=== PATIENT | male | born 1980 | race Caucasian/White ===

== ENCOUNTER 2020-05-06 17:49 | Outpatient (CLI) | payer OTHER, SELFPAY ==
--- NOTE | 2020-05-06 18:03 | XRR_ITS ---
PROCEDURE INFORMATION: Exam: XR Lumbosacral Spine, 2 or 3 Views Exam date and time: 05/06/2020 6:16 PM Age: 39 years old Clinical indication: Low back pain; Prior surgery; Surgery date: 6+ months; Additional info: Severe low back pain, right leg numbness TECHNIQUE: Imaging protocol: XR of the lumbosacral spine, 2 or 3 views. COMPARISON: No relevant prior studies available. FINDINGS: Vertebrae: Normal. No acute fracture. Normal alignment. Soft tissues: Unremarkable. XR/XR lumbar spine 2-3V* [id number] IMPRESSION: No acute findings.
== END 2020-05-06 17:50 | disposition home or self-care (01) ==
LOC: RAD 17:52
PROVIDERS: Visit Provider Nurse Practitioner Family
DX: M54.5 Low back pain (principal); R20.0 Anesthesia of skin; R29.898 Other symptoms and signs involving the musculoskeletal system; Z98.890 Other specified postprocedural states
CPT/HCPCS: 72100

== ENCOUNTER 2020-05-16 06:53 | Outpatient (CLI) | payer OTHER, SELFPAY ==
--- NOTE | 2020-05-16 07:15 | MR_ITS ---
WS: [id number] MRI LUMBAR SPINE NONCONTRAST HISTORY: M54.5 Low back pain COMPARISON: None available. TECHNIQUE: Sagittal and axial multisequence imaging is submitted. Normal lumbar alignment with no compression fractures or marrow edema. Mild disc desiccation and narrowing at L4-5 and L5-S1 and T11-12. Conus terminates normally at L1. Focal disc osteophyte posterior protrusion at T11-12 with mild contact on the ventral thecal sac and cord. No edema in the conus. L1-L2: Normal. L2-L3: Normal. L3-L4: Mild facet hypertrophy without stenosis. L4-L5: Very mild osteophytic ridging and annular disc bulging. There is a central disc protrusion wit h 6 extends into the RIGHT subarticular recess. Moderate-sized disc osteophyte complex with contact o n the RIGHT L5 nerve root within the annular fissure. L5-S1: Diffuse annular disc bulging and mild osteophytic ridging. There is a large central disc protr usion which extends bilaterally into the lateral recesses. There is significant contact on the RIGHT thecal sac and nerve root. There is an additional soft tissue component in the RIGHT lateral recess w hich I suspect may be an extruded disc or fragment. There is moderate thickening of the RIGHT S1 nerv e root. There is significant mass effect upon the nerve roots in the thecal sac and deformity of the thecal sac. The central portion of the disc herniation is contacting the S1 nerve roots bilaterally w ith encroachment into the subarticular recesses. Mild RIGHT foraminal narrowing. MR/MR lumbar spine wo con* [id number] IMPRESSION: 1. Large central disc protrusion at L5-S1 with extension into the lateral rece sses and contacting S1 nerve roots bilaterally. There is an additional soft tis bradley component which may be a disc fragment extending into the RIGHT lateral rec ess contacting and displacing the thecal sac and the nerve roots. This additio nal fragment measures 8.5 mm. 2. Central to RIGHT lateral recess disc protrusion at L4-5 extending into the RIGHT lateral recess. Contact on the RIGHT L5 nerve root. 3. Additional central disc osteophyte complex at T11-12 mild contact on the ve ntral thecal sac and thoracic cord.
== END 2020-05-16 06:54 | disposition home or self-care (01) ==
LOC: RADSHAW 06:55
PROVIDERS: PCP Nurse Practitioner Family; Visit Provider Nurse Practitioner Family
DX: M51.27 Other intervertebral disc displacement, lumbosacral region (principal); M51.26 Other intervertebral disc displacement, lumbar region; M25.78 Osteophyte, vertebrae
CPT/HCPCS: 72148

== ENCOUNTER 2020-09-07 06:00 | Outpatient (RCR) | payer OTHER, SELFPAY | END 2020-09-18 23:59 | disposition home or self-care (01) | LOC: APT 06:00 | PROVIDERS: PCP Nurse Practitioner Family; Referring Provider Physician Assistant; Visit Provider Physician Assistant | DX: R29.898 Other symptoms and signs involving the musculoskeletal system (principal); R20.0 Anesthesia of skin; R20.2 Paresthesia of skin; M54.5 Low back pain; M79.606 Pain in leg, unspecified | CPT/HCPCS: 97110; 97161 ==

== ENCOUNTER 2020-09-19 06:00 | Outpatient (RCR) | payer OTHER, SELFPAY | END 2020-10-16 23:59 | disposition home or self-care (01) | LOC: APT 06:00 | PROVIDERS: PCP Nurse Practitioner Family; Referring Provider Physician Assistant; Visit Provider Physician Assistant | DX: R29.898 Other symptoms and signs involving the musculoskeletal system (principal); M54.5 Low back pain | CPT/HCPCS: 97110; 97112; 97140 ==

== ENCOUNTER 2020-10-10 12:57 | Outpatient (CLI) | payer OTHER, SELFPAY ==
--- NOTE | 2020-10-10 13:01 | MR_ITS ---
WS: [id number] MRI THORACIC SPINE noncontrast. HISTORY: WEAKNESS OF RIGHT LOWER EXTREMITY COMPARISON: None available. TECHNIQUE: Multiplanar sequences are performed in sagittal and axial planes. Very slight increase in the thoracic kyphosis. Signal within the cord is normal. No fractures. Small cyst Schmorl's nodes are noted most significant at T8. No fracture or marrow edema. No myelomalacia. T1-2: Normal. T2-3: Normal. T3-4: Normal. T4-5: Normal. T5-6: Normal. T6-7: Small central disc protrusion with slight contact on the ventral thecal sac and displacement. No significant stenosis. T7-8: Normal. T8-9: Normal. T9-10: Normal. T10-11: Mild bilateral facet arthritis. No stenosis. T11-12: Moderate size central disc protrusion. Small osteophytes are contributing to mild encroachme nt upon the ventral thecal sac and the thoracic cord. There is contact but no displacement upon the t horacic cord. MR/MR thoracic spin wo con* [id number] IMPRESSION: 1. Mild increase in thoracic kyphosis and spondylosis. 2. Central disc protrusions at T6-7 and T11-12. Disc protrusions are contactin g the anterior thoracic cord with no displacement. No myelomalacia. Similar to the prior study.
--- NOTE | 2020-10-10 13:02 | MR_ITS ---
WS: [id number] MRI LUMBAR SPINE WITH AND WITHOUT CONTRAST HISTORY: WEAKNESS OF RIGHT LOWER EXTREMITY lumbar spine surgery 06/22/2020. COMPARISON: 05/16/2020 TECHNIQUE: Sagittal and axial multisequence imaging is submitted. Sagittal and axial T1 fat sat seque nces post-MultiHance 20 cc IV. Normal lumbar alignment. Disc space narrowing and degeneration at L4-5 and L5-S1. No acute marrow nehemiah ma or fractures. Postsurgical changes are noted at L5-S1. Conus terminates normally at L1-2 disc level. Central disc protrusion contacting the ventral cord at T11-12 is again identified. L1-L2: Normal. L2-L3: Normal. L3-L4: Mild bilateral facet joint arthritis. No significant stenosis. L4-L5: Diffuse annular disc bulging. Again noted is the central disc protrusion extending into the RI GHT lateral recess and abutting the L5 nerve root on the RIGHT. This was described on the prior study and may be slightly larger in size. Mild bilateral foraminal narrowing. L5-S1: Diffuse broad-based disc bulging posteriorly deforming the ventral thecal sac. Persistent cent ral disc protrusion. There is mild encroachment upon the ventral thecal sac. Mild bilateral foraminal narrowing. Peripherally enhancing fluid collection posterior to the central canal at L5-S1. Fluid collection ext ends centrally and to the RIGHT measures 2.7 x 1.3 cm. There is a additional diffuse soft tissue enha ncement along the postsurgical site and extending to surround the facet joints in the thecal sac. Sof t tissue enhancement surrounds the S1 nerve roots in the L5 nerve roots. MR/MR lumbar spine wo/w con [id number] IMPRESSION: 1. Peripherally enhancing fluid collection in the posterior paraspinal soft ti ssues at the surgical site measures 2.7 x 1.3 cm. Additional soft tissue enhanc ement surrounding the L5 and S1 nerve roots and through the facet joints of L5- S1. The collection may be postoperative hematoma or seroma or abscess. 2. Synovial enhancement and soft tissue enhancement surrounding the nerve root s can all be seen postsurgically. 3. Cannot exclude a small recurrent disc protrusion centrally and to the RIGHT abutting the S1 nerve root. 4. Central to RIGHT lateral disc protrusion at L4-5 is again identified abutti ng the L5 nerve root on the RIGHT.
[2020-10-10] MEDS: gadobenate dimeglumine 20 mL vial IV (14:21)
== END 2020-10-10 12:58 | disposition home or self-care (01) ==
LOC: RADWPI 13:00
PROVIDERS: PCP Nurse Practitioner Family; Visit Provider Physician Assistant
DX: R29.898 Other symptoms and signs involving the musculoskeletal system (principal); R20.0 Anesthesia of skin; R20.2 Paresthesia of skin; M51.26 Other intervertebral disc displacement, lumbar region; M51.24 Other intervertebral disc displacement, thoracic region; M40.294 Other kyphosis, thoracic region; M47.814 Spondylosis without myelopathy or radiculopathy, thoracic region
CPT/HCPCS: 72146; 72158; A9577

== ENCOUNTER 2020-10-17 06:00 | Outpatient (RCR) | payer OTHER, SELFPAY | END 2020-11-16 23:59 | disposition home or self-care (01) | LOC: APT 06:00 | PROVIDERS: PCP Nurse Practitioner Family; Referring Provider Physician Assistant; Visit Provider Physician Assistant | DX: R29.898 Other symptoms and signs involving the musculoskeletal system (principal); R20.0 Anesthesia of skin; R20.2 Paresthesia of skin; M54.5 Low back pain; M79.606 Pain in leg, unspecified | CPT/HCPCS: 97110; 97140 ==

== ENCOUNTER 2020-12-17 06:00 | Outpatient (RCR) | payer OTHER, SELFPAY | END 2021-01-16 23:59 | disposition home or self-care (01) | LOC: APT 06:00 | PROVIDERS: PCP Nurse Practitioner Family; Referring Provider Physician Assistant; Visit Provider Physician Assistant | DX: Z47.89 Encounter for other orthopedic aftercare (principal) | CPT/HCPCS: 97032; 97110; 97112; 97162 ==

== ENCOUNTER 2021-01-17 06:00 | Outpatient (RCR) | payer OTHER, SELFPAY | END 2021-02-15 23:59 | disposition home or self-care (01) | LOC: APT 06:00 | PROVIDERS: PCP Nurse Practitioner Family; Referring Provider Physician Assistant; Visit Provider Physician Assistant | DX: Z47.89 Encounter for other orthopedic aftercare (principal) | CPT/HCPCS: 97110; 97112 ==

== ENCOUNTER 2021-02-16 06:00 | Outpatient (RCR) | payer OTHER, SELFPAY | END 2021-03-18 23:59 | disposition home or self-care (01) | LOC: APT 06:00 | PROVIDERS: PCP Nurse Practitioner Family; Referring Provider Physician Assistant; Visit Provider Physician Assistant | DX: Z47.89 Encounter for other orthopedic aftercare (principal) | CPT/HCPCS: 97110 ==

== ENCOUNTER 2024-03-09 15:32 | Outpatient (CLI) | payer BC, SELFPAY ==
--- NOTE | 2024-03-09 15:39 | XR_ITS ---
WS: [id number] XR lumbar spine 2-3V* [id number] REASON FOR EXAM: M54.50 - Low back pain, unspecified FINDINGS: Relatively normal lumbar curvatures. No focal vertebral body abnormality. Changes of laminectomy on the left at L5 compared to 05/06/2020. Moderate narrowing of the intervertebral disc spaces at L4-L5 and L5-S1. Mild to moderate progression in the disc space narrowings compared to 05/06/2020. No significant listhesis. XR/XR lumbar spine 2-3V* [id number] IMPRESSION: Postoperative lumbar spine. Progressive degenerative spondylosis.
== END 2024-03-09 15:33 | disposition home or self-care (01) ==
LOC: RAD 15:35
PROVIDERS: PCP Nurse Practitioner Family; Visit Provider Nurse Practitioner Family
DX: M54.16 Radiculopathy, lumbar region (principal); R20.0 Anesthesia of skin; R20.2 Paresthesia of skin; M48.061 Spinal stenosis, lumbar region without neurogenic claudication; M48.07 Spinal stenosis, lumbosacral region; Z98.890 Other specified postprocedural states
CPT/HCPCS: 72100

== ENCOUNTER 2024-04-22 12:57 | Outpatient (CLI) | payer BC, SELFPAY ==
--- NOTE | 2024-04-22 13:00 | MR_ITS ---
WS: [id number] MRI LUMBAR SPINE NONCONTRAST TECHNIQUE: Sagittal T1, T2 and STIR imaging. Axial T1 and T2 imaging. CLINICAL INFORMATION: M54.9 - Dorsalgia, unspecified COMPARISON: MRI 2020 FINDINGS: Partially visualized retrocerebellar arachnoid cyst or hernan cisterna magna seen on the orthotics prosthetics assistant imaging. This can be further evaluated with noncontrast head CT or MRI of the head without gadolinium enhance ment. Mild lumbar curve. No acute compression. Small central protrusion at T11-T12. L1-L2: Mild facet arthropathy. L2-L3: Mild facet arthropathy. L3-L4: Mild annular bulging with slight narrowing the RIGHT subarticular recess. Spinal canal and for amen are patent. Mild facet arthropathy. L4-L5: Prior RIGHT hemilaminectomy. Slight narrowing of the subarticular recess bilaterally. Spinal c anal is patent. Mild RIGHT foraminal narrowing. Moderate facet arthropathy. LEFT subarticular protrus ion is new compared to previous with impingement on the traversing LEFT L5 nerve root in the subartic ular recess. Stable RIGHT subarticular protrusion. L5-S1: Prior laminectomy defects. Spinal canal is patent. Lobulated central and LEFT paracentral prot rusion with slight effacement of ventral thecal sac. Slight contact of the traversing LEFT greater th an RIGHT S1 nerve roots. This is progressed compared to previous. Mild RIGHT and no significant LEFT foraminal narrowing. Moderate facet arthropathy. RIGHT paracentral protrusion appears stable. Visualized pelvic bony structures: Normal. Paravertebral soft tissues: Normal. MR/MR lumbar spine wo con* [id number] IMPRESSION: 1. Prior postoperative changes RIGHT hemilaminectomy L4-5 and hemilaminectomie s L5-S1. No high-grade central canal stenosis. 2. LEFT subarticular disc protrusion L4-5 is new compared to previous with imp ingement on the LEFT subarticular recess and traversing LEFT L5 nerve root. Sma ll RIGHT subarticular protrusion at this level is stable. 3. Central and LEFT greater than RIGHT paracentral disc protrusions L5-S1 prog ressed compared to previous with impingement on the traversing LEFT greater rosie n RIGHT S1 nerve roots. Mild RIGHT L5-S1 foraminal narrowing. 4. Moderate facet arthropathy L4-L5 and L5-S1. 5. Slight narrowing the RIGHT subarticular recess L3-4 appears progressed. 6. Partially visualized hernan cisterna magna or retrocerebellar arachnoid cyst seen on the orthotics prosthetics assistant imaging. This can be further evaluated with PET CT or MRI of the head without gadolinium enhancement.
== END 2024-04-22 12:58 | disposition home or self-care (01) ==
LOC: RAD 12:58
PROVIDERS: PCP Nurse Practitioner Family; Visit Provider Nurse Practitioner Family
DX: M54.16 Radiculopathy, lumbar region (principal); M51.26 Other intervertebral disc displacement, lumbar region; M47.896 Other spondylosis, lumbar region; M96.1 Postlaminectomy syndrome, not elsewhere classified; M47.898 Other spondylosis, sacral and sacrococcygeal region; G93.0 Cerebral cysts; Z98.890 Other specified postprocedural states; R20.2 Paresthesia of skin; R20.0 Anesthesia of skin
CPT/HCPCS: 72148